=== PATIENT | male | born 1995 | race Caucasian/White ===

== ENCOUNTER 2021-06-17 21:03 | Emergency (ER) | payer OTHER, SELFPAY ==
[2021-06-17] MEDS ORDERED: Metoclopramide HCl 10 MG/2 ML VIAL ONE (22:58)
[2021-06-17] MEDS ORDERED: Morphine 4 MG/ML VIAL ONE (22:58)
[2021-06-17] MEDS ORDERED: ceFAZolin 2 GM/Dextrose 50 ML IVPB ONE (22:59)
[2021-06-17] MEDS ORDERED: Gentamicin 80 MG/100 ML BAG ONE (23:01)
== END 2021-06-17 23:21 | disposition left against medical advice (07) ==
LOC: CSHERS 21:03
DX: S62.617B Displaced fracture of proximal phalanx of left little finger, initial encounter for open fracture (principal); F17.210 Nicotine dependence, cigarettes, uncomplicated; W27.0XXA Contact with workbench tool, initial encounter; Y92.009 Unspecified place in unspecified non-institutional (private) residence as the place of occurrence of the external cause
CPT/HCPCS: 29125; J0690; J1580; J2270; J2765

== ENCOUNTER 2022-03-29 21:47 | Emergency (ER) | payer SELFPAY ==
[2022-03-29 22:18] LABS: Bilirubin 1+ (Negative); Blood, Urine Negative (Negative); Clarity Clear (Clear); Glucose, Urine (Dipstick) Normal (Negative); Ketone, Urine 15 mg/dL (Negative); Leukocyte 25 (Negative); Nitrite Positive (Negative); Protein, Urine (Dipstick) 30 mg/dl (Neg-Trace); Specific Gravity, Urine 1.025 (1.005-1.030)
[2022-03-29 22:27] LABS: Amphetamine Detected (NotDetected); Barbiturates Screen Not Detected (NotDetected); Benzodiazepine Screen Not Detected (NotDetected); Cocaine Metabolite Screen Not Detected (NotDetected); Methadone Not Detected (NotDetected); Methamphetamine Detected (NotDetected); Opiate Screen Not Detected (NotDetected); Oxycodone Screen Not Detected (NotDetected); Phencyclidine (PCP) Not Detected (NotDetected); THC/Cannabinoid Screen Detected (NotDetected); Tricyclic Screen Not Detected (NotDetected)
[2022-03-29 22:51] LABS: Bacteria/HPF 4+ HPF (None Seen); RBC/HPF 0-3 HPF (0-3); Squamous Epithelial 0-3 HPF (0-3)
[2022-03-29 22:55] LABS: ALT (SGPT) 41 U/L (8-55); AST (SGOT) 35 U/L (5-34); Albumin 3.9 g/dL (3.5-5.0); Alkaline Phosphatase 58 U/L (40-110); Anion Gap 14 mmol/L (10-20); BUN (Urea Nitrogen) 10 mg/dL (8.9-20.6); Bilirubin, Total 0.8 mg/dL (0.2-1.2); Calc. Creatinine Clearance 0 mL/min (70-130); Calcium 8.1 mg/dL (7.8-10.44); Carbon Dioxide 24 mmol/L (22-29); Chloride 107 mmol/L (98-107); Estimated GFR 122; Globulin 2.1 g/dL (2.4-3.5); Glucose 84 mg/dL (70-105); Potassium 3.1 mmol/L (3.5-5.1); Sodium 142 mmol/L (136-145)
[2022-03-29 22:56] LABS: Acetaminophen Less than 10.0 mcg/mL (10.0-30.0); Alcohol Less than 10 mg/dL (Less than 10); CK (CPK) 366 U/L (30-200); Magnesium 1.9 mg/dL (1.6-2.6); Salicylate Less than 8.0 mg/dL (15.0-30.0)
[2022-03-29 23:04] LABS: #Eosinphils 0.2 10x3/uL (0.0-0.5); #Monocytes 0.5 10x3/uL (0.0-1.1); %Basophils 0.4 % (0.0-2.0); %Eosinophils 4.6 % (0.0-6.0); %Lymphocytes 40.2 % (18.0-47.0); %Monocytes 11.4 % (0.0-10.0); %Neutrophils 43.4 % (40.0-75.0); Hemoglobin 14.1 g/dL (13.5-17.5); Mean Corpuscular HGB CONC 35.2 g/dL (32.0-36.0); Mean Corpuscular Hemoglobin 31.4 pg (27.0-33.0); Mean Corpuscular Volume 89.3 fl (81.2-95.1); Mean Platelet Volume 10.5 fl (7.4-10.4); Platelet Count 220 10x3/uL (150-450); RBC Distribution Width 12.9 % (11.5-14.5); Red Blood Cell (RBC) Count 4.49 10x6/uL (4.32-5.72); White Blood Cell (WBC) Count 4.6 10x3/uL (3.5-10.5)
[2022-03-29] MEDS ORDERED: Lidocaine 1% (PF) 30 ML VIAL ONE (23:47)
[2022-03-30 01:42] LABS: SARS-CoV-2 NAA Rapid Test Not Detected (NotDetected)
[2022-03-30] MEDS ORDERED: Diazepam 10 MG/2 ML SYRINGE ONE ×3 (02:13→06:12)
[2022-03-30] MEDS ORDERED: Ketamine 50 MG/ML (10ML VIAL) ONE (07:44)
[2022-03-30] MEDS ORDERED: Cephalexin 250 MG CAP ONE (09:18)
[2022-03-30] MEDS ORDERED: Ziprasidone 20 MG VIAL ONE (14:33)
[2022-03-30] MEDS ORDERED: Sterile Water 10 ML ONE (14:33)
== END 2022-03-30 18:44 ==
LOC: CSHERS 21:47
DX: T42.4X2A Poisoning by benzodiazepines, intentional self-harm, initial encounter (principal); T42.8X2A Poisoning by antiparkinsonism drugs and other central muscle-tone depressants, intentional self-harm, initial encounter; S61.512A Laceration without foreign body of left wrist, initial encounter; L03.115 Cellulitis of right lower limb; N30.00 Acute cystitis without hematuria; F12.10 Cannabis abuse, uncomplicated; F15.10 Other stimulant abuse, uncomplicated; X78.9XXA Intentional self-harm by unspecified sharp object, initial encounter
CPT/HCPCS: 12002; 36415; 51701; 80053; 80306; 80307; 81003; 81015; 82550; 83735; 85025; 93005; 96361; 96372; 96374; 96376; J2001; J3360; J3486; U0002